=== PATIENT | male | born 1935 | race Two or more races ===

== ENCOUNTER 2018-02-22 13:16 | Emergency (ER) | payer OTHER ==
[~2018-02-22] VITALS: Ht 162.6 cm; Wt 57.6 kg
[~2018-02-22 13:16] MED LIST: AMLO5TAB4 PO; ASPI-605 PO; FINA5TAB4 PO; LOSA50TA3 PO; METF-98 PO; SIMV20TA6 PO; TERA5CAP4 PO
--- NOTE | 2018-02-22 13:20 | NUR ---
[id number] FROM [address]: GENERALIZED WEAKNESS, DIZZINESS. BS IN FIELD 163. PLACED ON MONITOR. AWAITING MD ORDER
[2018-02-22] MEDS ORDERED: ONDANSETRON HCL/PF 4 MG/2 ML VIAL IVP ONE (13:30)
[2018-02-22] MEDS ORDERED: IV NS 0.9% 500 ML BAG IV ONE ×2 (13:30→17:30)
[2018-02-22] MEDS ORDERED: ONDANSETRON HCL/PF 4 MG/2 ML VIAL ONE (13:31)
[2018-02-22 13:33] LABS: BASOPHILS # (AUTO) 0.1 /CMM (0.0-0.2); BASOPHILS % (AUTO) 1.5 % (0.0-2.0); EOSINOPHILS % (AUTO) 0.9 % (0.0-6.0); HEMATOCRIT 40 % (39-51); HEMOGLOBIN 13.3 g/dL (13.5-17.5); LYMPHOCYTES # (AUTO) 0.8 /CMM (0.8-4.8); LYMPHOCYTES % (AUTO) 14.2 % (20.0-44.0); MEAN CORPUSCULAR HGB CONC 34 g/dl (31.0-36.0); MEAN CORPUSCULAR VOLUME 88 fL (80-96); MONOCYTES # (AUTO) 0.5 /CMM (0.1-1.30); MONOCYTES % (AUTO) 8.5 % (2.0-12.0); NEUTROPHILS # (AUTO) 4.1 /CMM (1.8-8.9); NEUTROPHILS % (AUTO) 74.9 % (43.0-81.0); PLATELET COUNT (AUTO) 201 /CMM (150-450); RDW COEFFICIENT OF VARIATION 12.2 (11.5-15.0); RED BLOOD CELL COUNT(AUTO) 4.54 MIL/uL (4.5-6.0); WHITE BLOOD COUNT (AUTO) 5.5 K/uL (4.3-11.0)
[2018-02-22 13:52] LABS: INR 0.99 (0.85-1.15)
[2018-02-22 13:56] LABS: ALANINE AMINOTRANSFERASE 35 U/L (12-78); ALBUMIN 3.6 g/dL (3.4-5.0); ALKALINE PHOSPHATASE 61 U/L (46-116); ASPARTATE AMINOTRANSFERASE 22 U/L (15-37); BILIRUBIN,DIRECT 0.2 mg/dL (0.0-0.2); CALCIUM, SERUM 10.2 mg/dL (8.5-10.1); CARBON DIOXIDE 29 mmol/L (21-32); CHLORIDE 105 mmol/L (98-107); CREATININE 1.7 mg/dL (0.6-1.3); GLUCOSE 155 mg/dL (74-106); POTASSIUM 3.6 mmol/L (3.5-5.1); SODIUM SERUM 140 mmol/L (136-145); TOTAL PROTEIN, SERUM 7.4 g/dL (6.4-8.2); TROPONIN I < 0.017 ng/mL (0.00-0.056); UREA NITROGEN, BLOOD 29 mg/dL (7-18)
--- NOTE | 2018-02-22 15:51 | NUR ---
URINE SAMPLE COLLECTED SENT TO LAB
[2018-02-22 16:20] LABS: APPEARANCE,URINE CLEAR (CLEAR); BILIRUBIN,URINE NEGATIVE (NEGATIVE); BLOOD, URINE 1+ Ery/uL (NEGATIVE); COLOR,URINE YELLOW (YELLOW); KETONES,URINE NEGATIVE (NEGATIVE); LEUKOCYTE ESTERASE ,URINE 1+ (NEGATIVE); NITRITE, URINE NEGATIVE (NEGATIVE); PROTEIN,URINE NEGATIVE (NEGATIVE); UGLUCOSE NEGATIVE (NEGATIVE); UROBILINOGEN,URINE 0.2 EU/dL (0.2)
[2018-02-22] MEDS ORDERED: LABETALOL HCL IV 100MG VIAL ONE (17:04)
--- NOTE | 2018-02-22 17:12 | NUR ---
PT DENIES ANY DIZZINESS AT THIS TIME
--- NOTE | 2018-02-22 17:12 | NUR ---
AMBULATORY SLOW STEADY GAIT
[2018-02-22 17:21] LABS: BACTERIA,URINE 2+ /HPF (None Seen)
--- NOTE | 2018-02-22 17:28 | NUR ---
CALLED [facility] FOR MD TO MD CALL.
[2018-02-22] MEDS ORDERED: LABETALOL HCL IV 100MG VIAL IV ONE (17:30)
--- NOTE | 2018-02-22 17:58 | NUR ---
RECEIVED A CALL FROM [facility] WITH TRANSFER INFORMATION. PT WILL BE GOING TO [facility]. NUMBER FOR REPORT IS [phone]. DR MOON IS THE ACCEPTING MD. [facility] WILL ARRIVE AT [id number]
--- NOTE | 2018-02-22 18:13 | NUR ---
GAVE REPORT TO SIMONA LOPEZ [facility]
--- NOTE | 2018-02-22 19:00 | NUR ---
REPORT RECEIVED FROM JESSICA RICKS FOR NARESH.
[2018-02-22 19:05] VITALS: BP 105/74
--- NOTE | 2018-02-22 19:56 | NUR ---
REPORT GIVEN TO GOKUL WITH [facility] FOR TRANSPORT TO [facility].
== END 2018-02-22 20:16 | disposition short-term general hospital (02) ==
LOC: ER 13:17
DX: R42 Dizziness and giddiness (principal); R53.1 Weakness; I10 Essential (primary) hypertension; E11.9 Type 2 diabetes mellitus without complications; Z90.49 Acquired absence of other specified parts of digestive tract; Z91.013 Allergy to seafood; Z88.6 Allergy status to analgesic agent; Z79.82 Long term (current) use of aspirin; R79.1 Abnormal coagulation profile
CPT/HCPCS: 36415; 70450-TC; 71045-TC; 80048-TC; 80076-TC; 81000-TC; 84484-TC; 85025-TC; 85730-TC; 87086-TC; A4606; J2405; J3490; J7040; Z7610

== ENCOUNTER 2019-02-17 16:31 | Emergency (ER) | payer OTHER ==
[~2019-02-17] VITALS: Ht 162.6 cm; Wt 54.9 kg
--- NOTE | 2019-02-17 16:32 | NUR ---
DR CARRILLO AT BEDSIDE
--- NOTE | 2019-02-17 16:42 | NUR ---
NICOLAS FROM HOME C/O LOW BP 73/38 AND ALTERED MENTAL STATUS AROUND 2PM. TO ER BED 8, HOOKED TO MONITOR, CHANGED TO GOWN, PROVIDED W WARM BLANKET, NO RESPIRATORY DISTRESS NOTED. AWAITING MD ALARCON
[2019-02-17] MEDS ORDERED: CHOL100040 PO (16:50)
[2019-02-17] MEDS ORDERED: ASCO500C18 PO (16:50)
[2019-02-17 16:58] LABS: BASOPHILS # (AUTO) 0.1 /CMM (0.0-0.2); BASOPHILS % (AUTO) 0.9 % (0.0-2.0); EOSINOPHILS % (AUTO) 3.7 % (0.0-6.0); HEMATOCRIT 22 % (39-51); HEMOGLOBIN 7.8 g/dL (13.5-17.5); LYMPHOCYTES # (AUTO) 0.6 /CMM (0.8-4.8); LYMPHOCYTES % (AUTO) 9.9 % (20.0-44.0); MEAN CORPUSCULAR HGB CONC 35 g/dl (31.0-36.0); MEAN CORPUSCULAR VOLUME 90 fL (80-96); MONOCYTES # (AUTO) 0.6 /CMM (0.1-1.30); MONOCYTES % (AUTO) 10.1 % (2.0-12.0); NEUTROPHILS # (AUTO) 4.6 /CMM (1.8-8.9); NEUTROPHILS % (AUTO) 75.4 % (43.0-81.0); PLATELET COUNT (AUTO) 243 /CMM (150-450); RED BLOOD CELL COUNT(AUTO) 2.49 MIL/uL (4.5-6.0); WHITE BLOOD COUNT (AUTO) 6.1 K/uL (4.3-11.0)
[2019-02-17] MEDS ORDERED: PIPERACILLIN /TAZOBACTAM 3.375 G in IV D5W 50 ML IV ONE (17:00)
[2019-02-17] MEDS ORDERED: VANCOMYCIN 1 GM in IV D5W 250 ML IV ONE (17:00)
[2019-02-17] MEDS ORDERED: IV NS 0.9% 1,000 ML BAG IV ONE (17:00)
[2019-02-17 17:02] LABS: CALCIUM, SERUM 9.9 mg/dL (8.5-10.1); CARBON DIOXIDE 26 mmol/L (21-32); CHLORIDE 107 mmol/L (98-107); CREATININE 2.9 mg/dL (0.6-1.3); GLUCOSE 155 mg/dL (74-106); POTASSIUM 3.8 mmol/L (3.5-5.1); SODIUM SERUM 142 mmol/L (136-145); UREA NITROGEN, BLOOD 39 mg/dL (7-18)
[2019-02-17] MEDS ORDERED: PIPERACILLIN /TAZOBACTAM 3.375 G VIAL IV ONE (17:02)
[2019-02-17] MEDS ORDERED: VANCOMYCIN 1 GM VIAL ONE (17:02)
[2019-02-17 17:20] LABS: ALANINE AMINOTRANSFERASE 23 U/L (12-78); ALBUMIN 2.3 g/dL (3.4-5.0); ALKALINE PHOSPHATASE 61 U/L (46-116); ASPARTATE AMINOTRANSFERASE 15 U/L (15-37); BILIRUBIN,DIRECT 0.1 mg/dL (0.0-0.2); BILIRUBIN,TOTAL 0.3 mg/dL (0.2-1.0); TOTAL PROTEIN, SERUM 5.5 g/dL (6.4-8.2)
[2019-02-17 17:20] LABS: APPEARANCE,URINE Cloudy (CLEAR); BILIRUBIN,URINE Negative (NEGATIVE); BLOOD, URINE Trace-intact Ery/uL (NEGATIVE); COLOR,URINE Yellow (YELLOW); KETONES,URINE Negative (NEGATIVE); LEUKOCYTE ESTERASE ,URINE Large (NEGATIVE); NITRITE, URINE Negative (NEGATIVE); PROTEIN,URINE 100 mg/dl (NEGATIVE); UGLUCOSE Negative (NEGATIVE); UROBILINOGEN,URINE 0.2 EU/dL (0.2)
--- NOTE | 2019-02-17 17:28 | NUR ---
CALLED [facility], AWAITING TO
[2019-02-17 17:56] LABS: RBC,URINE 0-3 /HPF (0-2)
[2019-02-17 17:57] LABS: BACTERIA,URINE Moderate /HPF (None Seen); SQUAMOUS EPITHELIAL CELL,UR Many /HPF (None Seen)
[2019-02-17 17:58] LABS: URINE AMORPHOUS URATE Moderate /HPF (None Seen); WBC,URINE 21-50 /HPF (0-3)
--- NOTE | 2019-02-17 18:24 | NUR ---
CALL BACK FROM [facility], WITH [place] INFO: GOING TO [facility],ACCEPTED BY DR KIDD, [facility] ETA 45 MINUTES- 1 HR,REPORT TO [phone]
[2019-02-17 18:50] VITALS: BP 144/78
--- NOTE | 2019-02-17 19:20 | NUR ---
Patient discharged to ambulance in stable condition w at bedside. Written and verbal after care instructions given. verbalizes understanding of instruction. Pt will be brought to [facility]
== END 2019-02-17 19:20 | disposition short-term general hospital (02) ==
LOC: ER 16:31
DX: G93.40 Encephalopathy, unspecified (principal); R41.82 Altered mental status, unspecified; I48.91 Unspecified atrial fibrillation; I10 Essential (primary) hypertension; E11.9 Type 2 diabetes mellitus without complications; Z90.49 Acquired absence of other specified parts of digestive tract; Z88.6 Allergy status to analgesic agent; Z79.82 Long term (current) use of aspirin; Z91.013 Allergy to seafood
CPT/HCPCS: 36415; 51701; 70450; 71045; 80048; 80076; 81001; 83605; 84484; 85025; 85730; 87040 ×2; 87086; 93005; 96365; 96367; 99291; J2543 ×2; J3370; J7030 ×2; J7060; 81000-TC

== ENCOUNTER 2019-08-02 16:44 | Emergency (ER) | payer OTHER, MEDICAID ==
[~2019-08-02] VITALS: Ht 162.6 cm; Wt 54.9 kg
[~2019-08-02 16:44] MED LIST changes: -AMLO5TAB4 PO; +ASCO500C18 PO; +CHOL100040 PO; -METF-98 PO; +SIMV-46 PO; -SIMV20TA6 PO
--- NOTE | 2019-08-02 16:58 | NUR ---
PT [id number] FRM HOME, MORE ALTERED THAN NORMAL, NOT EATING SINCE THIS AM. PT IS AAOX1, NOT IN RESPIRATORY DISTRESS, HOOKED TO MONITOR, KEPT RESTED AND COMFORTABLE, WILL CONTINUE TO MONITOR.
--- NOTE | 2019-08-02 17:08 | NUR ---
SEEN AND EXAMINED BY .
--- NOTE | 2019-08-02 17:20 | NUR ---
IV LINE ESTABLISHED, BLOOD DRAWN AND SENT TO LAB.
[2019-08-02 17:25] LABS: BASOPHILS # (AUTO) 0.1 /CMM (0.0-0.2); BASOPHILS % (AUTO) 0.6 % (0.0-2.0); EOSINOPHILS % (AUTO) 0.1 % (0.0-6.0); HEMATOCRIT 33 % (39-51); HEMOGLOBIN 11.1 g/dL (13.5-17.5); LYMPHOCYTES # (AUTO) 0.5 /CMM (0.8-4.8); LYMPHOCYTES % (AUTO) 3.7 % (20.0-44.0); MEAN CORPUSCULAR HGB CONC 34 g/dl (31.0-36.0); MEAN CORPUSCULAR VOLUME 89 fL (80-96); MONOCYTES % (AUTO) 7.7 % (2.0-12.0); NEUTROPHILS # (AUTO) 11.7 /CMM (1.8-8.9); NEUTROPHILS % (AUTO) 87.9 % (43.0-81.0); PLATELET COUNT (AUTO) 189 /CMM (150-450); RED BLOOD CELL COUNT(AUTO) 3.72 MIL/uL (4.5-6.0); WHITE BLOOD COUNT (AUTO) 13.3 K/uL (4.3-11.0)
[2019-08-02 17:35] LABS: CALCIUM, SERUM 10.3 mg/dL (8.5-10.1); CARBON DIOXIDE 27 mmol/L (21-32); CHLORIDE 105 mmol/L (98-107); CREATININE 1.6 mg/dL (0.6-1.3); GLUCOSE 196 mg/dL (74-106); POTASSIUM 4.1 mmol/L (3.5-5.1); SODIUM SERUM 140 mmol/L (136-145); UREA NITROGEN, BLOOD 38 mg/dL (7-18)
[2019-08-02 17:41] LABS: ALANINE AMINOTRANSFERASE 48 U/L (12-78); ALBUMIN 3.1 g/dL (3.4-5.0); ALKALINE PHOSPHATASE 88 U/L (46-116); ASPARTATE AMINOTRANSFERASE 22 U/L (15-37); BILIRUBIN,DIRECT 0.1 mg/dL (0.0-0.2); BILIRUBIN,TOTAL 0.3 mg/dL (0.2-1.0); TOTAL PROTEIN, SERUM 7.2 g/dL (6.4-8.2)
--- NOTE | 2019-08-02 17:55 | NUR ---
PT IS WHEELED TO CT SCAN VIA [facility].
[2019-08-02] MEDS ORDERED: LIDO700A30 TP (18:14)
[2019-08-02] MEDS ORDERED: VITA1TAB56 PO (18:14)
[2019-08-02] MEDS ORDERED: CALC-7 PO (18:14)
[2019-08-02] MEDS ORDERED: ATEN25TA PO (18:14)
--- NOTE | 2019-08-02 18:36 | NUR ---
URINE SPECIMEN COLLECTED AND SENT TO LAB.
[2019-08-02 18:48] LABS: APPEARANCE,URINE Cloudy (CLEAR); BILIRUBIN,URINE Negative (NEGATIVE); BLOOD, URINE Trace-intact Ery/uL (NEGATIVE); COLOR,URINE Yellow (YELLOW); KETONES,URINE Negative (NEGATIVE); LEUKOCYTE ESTERASE ,URINE Small (NEGATIVE); NITRITE, URINE Negative (NEGATIVE); PROTEIN,URINE 100 mg/dl (NEGATIVE); UGLUCOSE 500 MG/DL mg/dL (NEGATIVE); UROBILINOGEN,URINE 0.2 EU/dL (0.2)
[2019-08-02 19:01] LABS: BACTERIA,URINE Few /HPF (None Seen); SQUAMOUS EPITHELIAL CELL,UR Few /HPF (None Seen)
--- NOTE | 2019-08-02 19:12 | NUR ---
REPORT GIVEN TO JESSICA PATEL FOR NARESH.
[2019-08-02] MEDS ORDERED: CEFTRIAXONE 1GM BAG (ER ONLY) 1 GM/50 ML PIGGYBACK IV ONE (19:30)
[2019-08-02] MEDS ORDERED: CEFTRIAXONE 1 G VIAL ONE (19:32)
[2019-08-02] MEDS ORDERED: CEFTRIAXONE 1GM BAG (ER ONLY) 50 ML IV ONE (19:34)
--- NOTE | 2019-08-02 20:02 | NUR ---
CALLED [facility] TO ARRANGE TRANSPORTATION BACK HOME. THEY WILL CALL US BACK W/ INFO
[2019-08-02 20:05] LABS: BAND % (MANUAL) 4 % (0.0-5.0); LYMPHOCYTES % (MANUAL) 1 % (16-48); MONOCYTES % (MANUAL) 7 % (0-11.0); NEUTROPHILS % (MANUAL) 87 (42-76); REACTIVE LYMPHOCYTES 1 % (0-0)
--- NOTE | 2019-08-02 20:48 | NUR ---
[facility] ETA is [id number]. ED auth # is [id number]
--- NOTE | 2019-08-02 21:22 | NUR ---
[employer] HERE FOR [employer], REPORT GIVEN TO [employer].
[2019-08-02 21:23] VITALS: BP 128/59
== END 2019-08-02 21:23 | disposition home or self-care (01) ==
LOC: ER 16:50
DX: R41.82 Altered mental status, unspecified (principal); G30.9 Alzheimer's disease, unspecified; F02.80 Dementia in other diseases classified elsewhere, unspecified severity, without behavioral disturbance, psychotic disturbance, mood disturbance, and anxiety; N39.0 Urinary tract infection, site not specified; I10 Essential (primary) hypertension; E11.9 Type 2 diabetes mellitus without complications; Z90.49 Acquired absence of other specified parts of digestive tract; Z91.013 Allergy to seafood; Z88.6 Allergy status to analgesic agent; Z88.7 Allergy status to serum and vaccine; Z79.82 Long term (current) use of aspirin; Z79.899 Other long term (current) drug therapy
CPT/HCPCS: 36415; 70450; 71045; 80048; 80076; 81001; 84484; 85025; 87086; 93005; 96365; 99284; J0696; 81000-TC

== ENCOUNTER 2019-08-03 05:45 | Emergency (ER) | payer OTHER, MEDICAID ==
[~2019-08-03] VITALS: Ht 162.6 cm; Wt 54.4 kg
[~2019-08-03 05:45] MED LIST changes: -ASCO500C18 PO; +ATEN25TA PO; +CALC-7 PO; +LIDO700A30 TP; +VITA1TAB56 PO
--- NOTE | 2019-08-03 06:05 | NUR ---
BRIE FROM HOME C/C VOMITTING 30MIN AGO, PT WAS HERE LAST NIGHT COMPLAINING OF FLU LIKE SYMPTOMS. TEMP OF 93.6. TO ER BED 2 ALL OTHER VITALS STABLE AWAITING MED EVAL
[2019-08-03] MEDS ORDERED: ONDANSETRON HCL/PF 4 MG/2 ML VIAL ONE (06:22)
[2019-08-03] MEDS: IV NS 0.9% 1,000 ML BAG IV ONE (06:41)
[2019-08-03] MEDS: ONDANSETRON HCL/PF 4 MG/2 ML VIAL IVP ONE (06:41)
[2019-08-03 06:52] LABS: BASOPHILS # (AUTO) 0.1 /CMM (0.0-0.2); BASOPHILS % (AUTO) 0.5 % (0.0-2.0); HEMATOCRIT 35 % (39-51); HEMOGLOBIN 11.4 g/dL (13.5-17.5); LYMPHOCYTES # (AUTO) 0.4 /CMM (0.8-4.8); LYMPHOCYTES % (AUTO) 2.5 % (20.0-44.0); MEAN CORPUSCULAR HGB CONC 33 g/dl (31.0-36.0); MEAN CORPUSCULAR VOLUME 88 fL (80-96); MONOCYTES # (AUTO) 1.3 /CMM (0.1-1.30); MONOCYTES % (AUTO) 7.9 % (2.0-12.0); NEUTROPHILS # (AUTO) 14.8 /CMM (1.8-8.9); NEUTROPHILS % (AUTO) 89.1 % (43.0-81.0); PLATELET COUNT (AUTO) 172 /CMM (150-450); RED BLOOD CELL COUNT(AUTO) 3.95 MIL/uL (4.5-6.0); WHITE BLOOD COUNT (AUTO) 16.7 K/uL (4.3-11.0)
[2019-08-03 07:00] LABS: CALCIUM, SERUM 10.2 mg/dL (8.5-10.1); CARBON DIOXIDE 27 mmol/L (21-32); CHLORIDE 103 mmol/L (98-107); CREATININE 1.7 mg/dL (0.6-1.3); GLUCOSE 277 mg/dL (74-106); POTASSIUM 4.1 mmol/L (3.5-5.1); SODIUM SERUM 140 mmol/L (136-145); UREA NITROGEN, BLOOD 44 mg/dL (7-18)
[2019-08-03 07:05] LABS: ALANINE AMINOTRANSFERASE 51 U/L (12-78); ALKALINE PHOSPHATASE 88 U/L (46-116); ASPARTATE AMINOTRANSFERASE 32 U/L (15-37); BILIRUBIN,DIRECT 0.1 mg/dL (0.0-0.2); BILIRUBIN,TOTAL 0.4 mg/dL (0.2-1.0); TOTAL PROTEIN, SERUM 7.1 g/dL (6.4-8.2)
--- NOTE | 2019-08-03 07:20 | NUR ---
MALKA SENT TO LAB
[2019-08-03] MEDS ORDERED: CEFTRIAXONE 1GM BAG (ER ONLY) 50 ML IV ONE (07:21)
[2019-08-03] MEDS ORDERED: AZITHROMYCIN 500 MG VIAL ONE (07:22)
--- NOTE | 2019-08-03 07:24 | NUR ---
CALLED [facility].
[2019-08-03] MEDS: IV NS 0.9% 500 ML IV ONE (07:29)
[2019-08-03] MEDS: CEFTRIAXONE 1GM BAG (ER ONLY) 1 GM/50 ML PIGGYBACK IV ONE (07:30)
--- NOTE | 2019-08-03 07:31 | NUR ---
REPORT RECEIVED FROM JESSICA PATEL
[2019-08-03 07:58] LABS: APPEARANCE,URINE CLEAR (CLEAR); BILIRUBIN,URINE NEGATIVE (NEGATIVE); BLOOD, URINE TRACE-INTA Ery/uL (NEGATIVE); COLOR,URINE YELLOW (YELLOW); KETONES,URINE NEGATIVE (NEGATIVE); LEUKOCYTE ESTERASE ,URINE SMALL (NEGATIVE); NITRITE, URINE NEGATIVE (NEGATIVE); PH,URINE 5.5 (5.0-8.0); PROTEIN,URINE 30 mg/dl (NEGATIVE); UGLUCOSE 500 MG/DL mg/dL (NEGATIVE); UROBILINOGEN,URINE 0.2 EU/dL (0.2)
[2019-08-03] MEDS: AZITHROMYCIN 500 MG in IV D5W 250 ML IV ONE (08:05)
[2019-08-03 08:18] LABS: BAND % (MANUAL) 1 % (0.0-5.0); EOSINOPHILS % (MANUAL) 1 % (0-4); LYMPHOCYTES % (MANUAL) 3 % (16-48); MONOCYTES % (MANUAL) 8 % (0-11.0); NEUTROPHILS % (MANUAL) 87 (42-76)
[2019-08-03 08:38] LABS: BACTERIA,URINE Few /HPF (None Seen); SQUAMOUS EPITHELIAL CELL,UR Moderate /HPF (None Seen)
[2019-08-03 08:39] LABS: WBC,URINE 20-30 /HPF (0-3)
--- NOTE | 2019-08-03 08:40 | NUR ---
PT IS GOING TO [facility] ED. DR PAYAN ACCEPTING. NUMBER FOR REPORT. [phone]. 0904 [facility].
--- NOTE | 2019-08-03 09:07 | NUR ---
received a call from Geno from [facility] and update given.
[2019-08-03 09:14] VITALS: BP 101/57
--- NOTE | 2019-08-03 09:29 | NUR ---
REPORT GIVEN TO JESSICA CASTANEDA. Addendum: 08/03/19 at 0929 by ERI REPORT GIVEN TO JESSICA CASTANEDA, MARCO ABDI FOR NARESH. REPORT GIVEN TO GRISELDA SANABRIA FROM [facility].
--- NOTE | 2019-08-03 09:31 | NUR ---
Patient discharged to [facility] in stable condition omayra to [facility]. Pertinent labs and images given to EMS. Family and shactor verbalized understanding of instructions.
--- NOTE | 2019-08-03 11:52 | NUR ---
ALICIA FAXED TO [facility]
== END 2019-08-03 09:37 | disposition short-term general hospital (02) ==
LOC: ER 05:46
DX: T68.XXXA Hypothermia, initial encounter (principal); N39.0 Urinary tract infection, site not specified; I48.91 Unspecified atrial fibrillation; R11.2 Nausea with vomiting, unspecified; R79.89 Other specified abnormal findings of blood chemistry; E11.9 Type 2 diabetes mellitus without complications; G30.9 Alzheimer's disease, unspecified; F02.80 Dementia in other diseases classified elsewhere, unspecified severity, without behavioral disturbance, psychotic disturbance, mood disturbance, and anxiety; I10 Essential (primary) hypertension; Z90.49 Acquired absence of other specified parts of digestive tract; Z91.013 Allergy to seafood; Z88.6 Allergy status to analgesic agent; Z88.7 Allergy status to serum and vaccine; Z79.82 Long term (current) use of aspirin; Z79.899 Other long term (current) drug therapy
CPT/HCPCS: 71045; 36415; 80048; 80076; 81001; 83605 ×2; 84145; 84484; 85025; 85730; 87040 ×2; 87086; 93005; 96361; 96365; 96367; 96375; 99291; J0456; J0696; J2405; J7030 ×2; 81000-TC